=== PATIENT | female | born 1950 | race Caucasian/White ===

== ENCOUNTER 2016-11-25 08:35 | Day surgery (SDC) | payer BC ==
[2016-11-23 09:37] VITALS: BMI 33.5
[~2016-11-25 08:35] MED LIST: LACTATED RINGERS 1,000 ML IV SCH
[2016-11-25 08:48] VITALS: TEMP 97.3
[2016-11-25 08:54] LABS: Glucose,Whole Blood 146 mg/dL (75-99)
[2016-11-25] MEDS ORDERED: LIDOCAINE 1% 20 ML VIAL (10MG/ML) FOR IV START SQ ONE (08:55)
[2016-11-25] MEDS ORDERED: PROPOFOL 10 MG/ML 20 ML VIAL IV ONE (09:12)
[2016-11-25] MEDS ORDERED: LIDOCAINE 1% INJ 10MG/ML (20 ML MDV) ONE (09:12)
--- NOTE | 2016-11-25 09:17 | P.GSHP ---
History of Present Illness H&P Date: 11/25/16 Chief Complaint: Abdominal pain Patient here today for upper endoscopy. She has had complaints of upper abdominal pain. No relief with antiacids. She has had some relief with her modification of her diet. No melanotic stools or rectal bleeding. No hematemesis. Some intentional weight loss. Past Medical History Past Medical History: Diabetes Mellitus, GERD/Reflux, Hyperlipidemia, Hypertension, Thyroid Disorder Additional Past Medical History / Comment(s): RENAL ARTERY ANEURYSM X2 (1 REPAIRED), HIATAL HERNIA, FATTY LIVER, ALOPECIA. , STATES PAIN " RIGHT UPPER RIB CAGE" . History of Any Multi-Drug Resistant Organisms: None Reported Past Surgical History: Appendectomy, Section, Tonsillectomy Additional Past Surgical History / Comment(s): X2, REPAIR RENAL ARTERY ANEURYSM. Past Anesthesia/Blood Transfusion Reactions: No Reported Reaction Past Psychological History: No Psychological Hx Reported Smoking Status: Never smoker Past Alcohol Use History: Rare Past Drug Use History: None Reported - Past Family History Mother Family Medical History: No Reported History Medications and Allergies Home Medications Medication Instructions Recorded Confirmed Type Aspirin EC [Ecotrin Low Dose] 81 mg PO DAILY 11/23/16 11/25/16 History Atorvastatin [Lipitor] 40 mg PO MOWEFR 11/23/16 11/25/16 History Biotin 5 mg PO DAILY 11/23/16 11/25/16 History Cetirizine HCl [Zyrtec] 10 mg PO DAILY 11/23/16 11/25/16 History Docusate Sodium [Stool Softener] 100 mg PO DAILY 11/23/16 11/25/16 History Ergocalciferol [Vitamin D2] 50,000 unit PO DIRECTED 11/23/16 11/25/16 History Furosemide [Lasix] 20 mg PO DAILY 11/23/16 11/25/16 History Levothyroxine Sodium [Synthroid] 175 mcg PO DAILY 11/23/16 11/25/16 History Metoprolol Succinate (ER) [Toprol 50 mg PO DAILY 11/23/16 11/25/16 History Xl] Multivitamins, Thera [Multivitamin 1 tab PO DAILY 11/23/16 11/25/16 History (formulary)] Omeprazole [PriLOSEC] 20 mg PO DAILY 11/23/16 11/25/16 History metFORMIN HCL [Metformin HCl] 500 mg PO BID 11/23/16 11/25/16 History Allergies Allergy/AdvReac Type Severity Reaction Status Date / Time adhesive tape AdvReac Unknown IRRITATED Verified 11/25/16 08:44 SKIN Surgical - Exam Vital Signs Temp Pulse Resp BP Pulse Ox 97.3 F L 75 15 153/77 98 11/25/16 08:48 11/25/16 08:48 11/25/16 08:48 11/25/16 08:48 11/25/16 08:48 Physical exam: General: Well-developed, well-nourished HEENT: Normocephalic, sclerae nonicteric Abdomen: Nontender, nondistended Extremities: No edema Neuro: Alert and oriented Results - Labs Abnormal Lab Results - Last 24 Hours (Table) 11/25/16 Range/Units 08:52 POC Glucose (mg/dL) 146 H (75-99) mg/dL Assessment and Plan (1) Abdominal pain Narrative/Plan: Proceed with upper endoscopy at this time. Status: Acute
--- NOTE | 2016-11-25 09:26 | P.PCN ---
Date of Procedure: 11/25/16 Preoperative Diagnosis: Postoperative Diagnosis: Procedure(s) Performed: Preoperative Dx: Abdominal pain Postoperative Dx: Gastritis, gastric polyps, hiatal hernia, distal esophagitis Procedure: EGD with Bx Anesthesia: Sedation Endoscopist: Dr. Drake Specimens: Antrum, gastric polyp, distal esophagus Endoscopic Procedure: The patient was on the endoscopy table in the left decubitus position. The Olympus gastroscope was inserted into the oropharynx and passed under direct visualization to the region of the third portion of the duodenum. From that point the scope was slowly withdrawn inspecting all surfaces carefully. There were no neoplastic inflammatory or polypoid lesions throughout the duodenum. The pylorus was widely patent. The stomach was carefully inspected. There was gastritis present in a biopsy took place of the antrum. A few small polyps were also identified and a biopsy of one of these polyps took place. Retroflexion revealed a small sliding hiatal hernia. The GE junction was present about 1.5 cm above the diaphragmatic hiatus. At the GE junction itself there was mild acute inflammation. There was some subtle narrowing consistent with a very early Schatzki's ring formation the remainder of the esophagus appear normal. The patient was then taken to the recovery room in stable condition per anesthesia guidelines. Recommendations: Continue antiacid therapy. Await biopsy results. Implants: Indications for Procedure: Operative Findings: Description of Procedure:
[2016-11-25 09:32] VITALS: RESP 16
[2016-11-25 09:50] VITALS: BP 139/78; PULSE 68
== END 2016-11-25 10:17 | disposition home or self-care (01) ==
LOC: ORWHC2ENDO 08:35
PROVIDERS: ATTEND Surgery
DX: K29.50 Unspecified chronic gastritis without bleeding (principal); K31.7 Polyp of stomach and duodenum; K44.9 Diaphragmatic hernia without obstruction or gangrene; K21.0 Gastro-esophageal reflux disease with esophagitis; E11.9 Type 2 diabetes mellitus without complications; E78.5 Hyperlipidemia, unspecified; I10 Essential (primary) hypertension; E07.9 Disorder of thyroid, unspecified; Z79.82 Long term (current) use of aspirin; Z79.899 Other long term (current) drug therapy; Z79.84 Long term (current) use of oral hypoglycemic drugs
CPT/HCPCS: 88305; 88342; 43239; J2001; J2704

== ENCOUNTER 2019-06-02 15:04 | Emergency (ER) | payer MEDICARE, BC ==
[2019-06-02 15:08] VITALS: RESP 18
[2019-06-02] MEDS ORDERED: ONDANSETRON 4 MG/2 ML VIAL IVP STA (15:23)
[2019-06-02 15:42] LABS: Basophils # (A) 0.1 k/uL (0-0.2); Basophils % (A) 1 %; Eosinophils # (A) 0.2 k/uL (0-0.7); Eosinophils % (A) 2 %; HCT 38.2 % (34.0-46.0); HGB 13.1 gm/dL (11.4-16.0); Lymphocytes # (A) 3.8 k/uL (1.0-4.8); Lymphocytes % (A) 45 %; MCH 31.7 pg (25.0-35.0); MCHC 34.2 g/dL (31.0-37.0); MCV 92.6 fL (80.0-100.0); Mean Platelet Volume 6.3; Monocytes # (A) 0.6 k/uL (0-1.0); Monocytes % (A) 7 %; Neutrophils # (A) 3.6 k/uL (1.3-7.7); Neutrophils % (A) 43 %; Platelet Count 346 k/uL (150-450); RBC 4.12 m/uL (3.80-5.40); RDW 12.8 % (11.5-15.5); WBC 8.3 k/uL (3.8-10.6)
--- NOTE | 2019-06-02 15:51 | ED ---
Abdominal Pain HPI - General Source: patient Mode of arrival: ambulatory Limitations: no limitations <Girish Paez - Last Filed: 06/03/19 01:32> <Chito Duncan - Last Filed: 06/04/19 17:06> - General Chief Complaint: Abdominal Pain Stated Complaint: Abd pain Time Seen by Provider: 06/02/19 15:09 - History of Present Illness Initial Comments: Patient is a 68-year-old female with history of renal artery aneurysm was presenting to emergency Department with a chief complaint of abdominal pain. Patient reports the pain started about one week ago and is gradually increasing severity. She states the pain is located right upper quadrant and is dull in nature. Patient states the pain is not related to oral intake. Patient does report intermittent mild nausea but no vomiting or diarrhea. Patient denies any night sweats fevers or chills. Patient denies any urinary or bowel symptoms. She has no previous history of gallbladder disease. Denies any chest pain shortness of breath and back pain. She states recently she has been playing with her grandchildren more often and picking them up because there are for the holidays. denies shortness of breath or chest pain. (Girish Paez) - Related Data Home Medications Medication Instructions Recorded Confirmed Aspirin EC [Ecotrin Low Dose] 81 mg PO DAILY 11/23/16 11/25/16 Atorvastatin [Lipitor] 40 mg PO MOWEFR 11/23/16 11/25/16 Biotin 5 mg PO DAILY 11/23/16 11/25/16 Cetirizine HCl [Zyrtec] 10 mg PO DAILY 11/23/16 11/25/16 Docusate Sodium [Stool Softener] 100 mg PO DAILY 11/23/16 11/25/16 Ergocalciferol [Vitamin D2] 50,000 unit PO DIRECTED 11/23/16 11/25/16 Furosemide [Lasix] 20 mg PO DAILY 11/23/16 11/25/16 Levothyroxine Sodium [Synthroid] 175 mcg PO DAILY 11/23/16 11/25/16 Metoprolol Succinate (ER) [Toprol 50 mg PO DAILY 11/23/16 11/25/16 Xl] Multivitamins, Thera [Multivitamin 1 tab PO DAILY 11/23/16 11/25/16 (formulary)] Omeprazole [PriLOSEC] 20 mg PO DAILY 11/23/16 11/25/16 metFORMIN HCL [Metformin HCl] 500 mg PO BID 11/23/16 11/25/16 Allergies Allergy/AdvReac Type Severity Reaction Status Date / Time adhesive tape AdvReac Unknown IRRITATED Verified 11/25/16 08:44 SKIN Review of Systems ROS Other: All systems not noted in ROS Statement are negative. <Girish Paez - Last Filed: 06/03/19 01:32> ROS Other: All systems not noted in ROS Statement are negative. <Chito Duncan - Last Filed: 06/04/19 17:06> ROS Statement: Those systems with pertinent positive or pertinent negative responses have been documented in the HPI. Past Medical History Past Medical History: Diabetes Mellitus, GERD/Reflux, Hyperlipidemia, Hypertension, Thyroid Disorder Additional Past Medical History / Comment(s): RENAL ARTERY ANEURYSM X2 (1 REPAIRED), HIATAL HERNIA, FATTY LIVER, ALOPECIA. , STATES PAIN " RIGHT UPPER RIB CAGE" . History of Any Multi-Drug Resistant Organisms: None Reported Past Surgical History: Appendectomy, Section, Tonsillectomy Additional Past Surgical History / Comment(s): X2, REPAIR RENAL ARTERY ANEURYSM. Past Anesthesia/Blood Transfusion Reactions: No Reported Reaction Past Psychological History: No Psychological Hx Reported Smoking Status: Never smoker Past Alcohol Use History: Rare Past Drug Use History: None Reported - Past Family History Mother Family Medical History: No Reported History <Girish Paez - Last Filed: 06/03/19 01:32> General Exam Limitations: no limitations General appearance: alert, in no apparent distress Head exam: Present: atraumatic, normocephalic, normal inspection Eye exam: Present: normal appearance Pupils: Present: normal accommodation ENT exam: Present: normal exam, normal oropharynx, mucous membranes moist, TM's normal bilaterally, normal external ear exam Neck exam: Present: normal inspection, full ROM Respiratory exam: Present: normal lung sounds bilaterally, chest wall tenderness (focal tenderness along the mid axillary line on the right side) Cardiovascular Exam: Present: regular rate, normal rhythm, normal heart sounds GI/Abdominal exam: Present: soft, tenderness (Right upper quadrant. Positive Bundy), normal bowel sounds. Absent: distended, guarding, rebound, rigid, organomegaly, mass, bruit, pulsatile mass, hernia Extremities exam: Present: normal inspection, full ROM Back exam: Present: normal inspection, full ROM Neurological exam: Present: alert, oriented X3 Psychiatric exam: Present: normal affect, normal mood Skin exam: Present: warm, dry, normal color <Girish Paez - Last Filed: 06/03/19 01:32> Course <Chito Duncan - Last Filed: 06/04/19 17:06> Vital Signs 06/02/19 06/02/19 15:06 18:26 Temperature 97.7 F 96.9 F L Pulse Rate 86 91 Respiratory 18 18 Rate Blood Pressure 155/76 141/83 O2 Sat by Pulse 100 99 Oximetry - Reevaluation(s) Reevaluation #1: 06/04/19 17:05 PA supervision: I proceeded [id number] evaluation the patient at the time of treatment. Patient did present with complaints of pain as stated in the initial H&P. Her clinical exam was otherwise unremarkable on my exam. She did state however that she had a history of a renal aneurysm that presented very similarly to how she presents today. Patient was evaluated in the appropriate fashion and was ultimately discharged with outpatient follow-up. No evidence of aneurysm. I do agree with assessment and plan. (Chito Duncan) Medical Decision Making - Lab Data Result diagrams: 06/02/19 15:34 06/02/19 15:34 <Girish Paez - Last Filed: 06/03/19 01:32> - Lab Data Result diagrams: 06/02/19 15:34 06/02/19 15:34 <Chito Duncan - Last Filed: 06/04/19 17:06> - Medical Decision Making Patient is 68-year-old female presenting to emergency Department with chief complaint of right upper quadrant abdominal pain. On exam patient has a positive Bundy sign and some tenderness along the mid axillary line on the right side. There appears to be focal tenderness there as well. The right upper quadrant and lateral flank pain appears to be exacerbated with palpation in left and right rotation. Patient does have a history of a right renal artery aneurysm. No CVA tenderness. CBC, CMP and UA unremarkable. Ultrasound of the right upper quadrant is unremarkable. CT of abdomen and pelvis is also unremarkable. At this point I suspect the patient's pain to be musculoskeletal in nature as she states she has been playing with her grandchildren and picking them up recently as of the holidays. Patient declined any analgesia because the pain was never that severe. Patient advised to follow with primary care. Strict return parameters were thoroughly discussed with patient was understanding and agreeable. Case discussed with physician. (Girish Paez) - Lab Data Lab Results 06/02/19 06/02/19 06/02/19 Range/Units 15:34 15:34 16:00 WBC 8.3 (3.8-10.6) k/uL RBC 4.12 (3.80-5.40) m/uL Hgb 13.1 (11.4-16.0) gm/dL Hct 38.2 (34.0-46.0) % MCV 92.6 (80.0-100.0) fL MCH 31.7 (25.0-35.0) pg MCHC 34.2 (31.0-37.0) g/dL RDW 12.8 (11.5-15.5) % Plt Count 346 (150-450) k/uL Neutrophils % 43 % Lymphocytes % 45 % Monocytes % 7 % Eosinophils % 2 % Basophils % 1 % Neutrophils # 3.6 (1.3-7.7) k/uL Lymphocytes # 3.8 (1.0-4.8) k/uL Monocytes # 0.6 (0-1.0) k/uL Eosinophils # 0.2 (0-0.7) k/uL Basophils # 0.1 (0-0.2) k/uL Sodium 137 (137-145) mmol/L Potassium 4.3 (3.5-5.1) mmol/L Chloride 100 (98-107) mmol/L Carbon Dioxide 28 (22-30) mmol/L Anion Gap 9 mmol/L BUN 14 (7-17) mg/dL Creatinine 0.70 (0.52-1.04) mg/dL Est GFR (CKD-EPI)AfAm >90 (>60 ml/min/1.73 sqM) Est GFR (CKD-EPI)NonAf >90 (>60 ml/min/1.73 sqM) Glucose 206 H (74-99) mg/dL Calcium 9.6 (8.4-10.2) mg/dL Total Bilirubin 0.4 (0.2-1.3) mg/dL AST 25 (14-36) U/L ALT 25 (9-52) U/L Alkaline Phosphatase 77 (38-126) U/L Total Protein 7.3 (6.3-8.2) g/dL Albumin 4.4 (3.5-5.0) g/dL Amylase 54 (30-110) U/L Lipase 142 (23-300) U/L Urine Color Yellow Urine Appearance Clear (Clear) Urine pH 5.5 (5.0-8.0) Ur Specific [place] 1.023 (1.001-1.035) Urine Protein Negative (Negative) Urine Glucose (UA) Negative (Negative) Urine Ketones Negative (Negative) Urine Blood Negative (Negative) Urine Nitrite Negative (Negative) Urine Bilirubin Negative (Negative) Urine Urobilinogen <2.0 (<2.0) mg/dL Ur Leukocyte Esterase Small H (Negative) Urine RBC 1 (0-5) /hpf Urine WBC 5 (0-5) /hpf Ur Squamous Epith Cells 2 (0-4) /hpf Disposition Is patient prescribed a controlled substance at d/c from ED?: No Time of Disposition: 18:21 <Girish Paez - Last Filed: 06/03/19 01:32> <Chito Duncan - Last Filed: 06/04/19 17:06> Clinical Impression: Right upper quadrant abdominal pain Disposition: HOME SELF-CARE Condition: Stable Instructions (If sedation given, give patient instructions): Abdominal Pain (ED) Additional Instructions: Please follow up with primary care. Please return to emergency department if symptoms worsen. Referrals: Kaye Drake MD [Primary Care Provider] - 1-2 days
[2019-06-02 15:56] LABS: ALT 25 U/L (9-52); AST 25 U/L (14-36); African American GFR (CKD) >90 (>60 ml/min/1.73 sqM); Albumin 4.4 g/dL (3.5-5.0); Alkaline Phosphatase 77 U/L (38-126); Amylase 54 U/L (30-110); Anion Gap 9 mmol/L; Blood Urea Nitrogen 14 mg/dL (7-17); Calcium 9.6 mg/dL (8.4-10.2); Carbon Dioxide 28 mmol/L (22-30); Chloride 100 mmol/L (98-107); Glucose 206 mg/dL (74-99); Non-African American GFR(CKD) >90 (>60 ml/min/1.73 sqM); Potassium 4.3 mmol/L (3.5-5.1); Sodium 137 mmol/L (137-145); Total Bilirubin 0.4 mg/dL (0.2-1.3); Total Protein 7.3 g/dL (6.3-8.2)
[2019-06-02 16:22] LABS: Appearance,Urine Clear (Clear); Bilirubin,Urine Negative (Negative); Blood,Urine Negative (Negative); Color,Urine Yellow; Glucose,Urine (UA) Negative (Negative); Ketones,Urine Negative (Negative); Leukocyte Esterase,Urine Small (Negative); Nitrite,Urine Negative (Negative); PH, Urine 5.5 (5.0-8.0); Protein,Urine Negative (Negative); RBC,Urine 1 /hpf (0-5); Specific Gravity,Urine 1.023 (1.001-1.035); Squamous Epithelial Cell,Urine 2 /hpf (0-4); Urobilinogen,Urine <2.0 mg/dL (<2.0); WBC,Urine 5 /hpf (0-5)
--- NOTE | 2019-06-02 17:13 | US ---
EXAMINATION TYPE: US abdomen limited DATE OF EXAM: 06/02/2019 COMPARISON: CLINICAL HISTORY: ruq. RUQ pain EXAM MEASUREMENTS: Liver Length: 15.2 cm Gallbladder Wall: 0.1 cm CBD: 0.5 cm Right Kidney: 9.9 x 4.9 x 4.8 cm Pancreas: Obscured by bowel gas Liver: wnl Gallbladder: wnl Evidence for sonographic Bundy's sign: neg CBD: wnl Right Kidney: wnl IMPRESSION: Negative exam. No gallstones or dilated ducts.
--- NOTE | 2019-06-02 18:18 | CT ---
EXAMINATION TYPE: CT abdomen pelvis w con DATE OF EXAM: 06/02/2019 COMPARISON: None HISTORY: RUQ pain. Hx appy, CT DLP: 1232.2 mGycm Automated exposure control for dose reduction was used. TECHNIQUE: Helical acquisition of images was performed from the lung bases through the pelvis. CONTRAST: Performed without Oral Contrast and with IV Contrast, patient injected with 100 mL of Isovue 300. FINDINGS: Lung bases are clear. There is no pleural effusion. Heart size is normal. There is no pericardial eff usion. Stomach is intact. Liver spleen pancreas gallbladder appear normal. Bile ducts are not dilated. There is no adrenal mass. Kidneys show satisfactory contrast opacification. There is no hydronephrosi s. Ureters are not dilated. There is no retroperitoneal adenopathy. Bladder distends smoothly. There is no inguinal hernia. There is no free fluid in the pelvis. There is no mesenteric edema. There is no ascites or free air. There is no sign of a bowel obstruction. Appendix is not seen. There is no sign of thickened appendix . Lumbar vertebra have normal spacing and alignment. Posterior elements are intact. There is no sukhjinder olga fracture. The bony pelvis appears intact. Uterus is not seen. IMPRESSION: NEGATIVE CT SCAN ABDOMEN AND PELVIS. I DO NOT SEE A CAUSE FOR RIGHT LOWER QUADRANT PAIN.
[2019-06-02 18:34] VITALS: BP 141/83; PULSE 91; TEMP 96.9
== END 2019-06-02 18:26 | disposition home or self-care (01) ==
LOC: EC 15:04
DX: R10.11 Right upper quadrant pain (principal); E11.9 Type 2 diabetes mellitus without complications; K21.9 Gastro-esophageal reflux disease without esophagitis; E78.5 Hyperlipidemia, unspecified; I10 Essential (primary) hypertension; E07.9 Disorder of thyroid, unspecified; Z79.82 Long term (current) use of aspirin; Z79.890 Hormone replacement therapy; Z79.84 Long term (current) use of oral hypoglycemic drugs; Z79.899 Other long term (current) drug therapy; Z91.048 Other nonmedicinal substance allergy status; Z87.19 Personal history of other diseases of the digestive system; Z90.89 Acquired absence of other organs; Z86.79 Personal history of other diseases of the circulatory system; Z98.890 Other specified postprocedural states
CPT/HCPCS: 36415; 80053; 82150; 83690; 85025; 81001; 76705; 74177; 96374; 99284; J2405; Q9967

== ENCOUNTER → 2019-08-05 | Outpatient (CLI) | payer MEDICARE, BC ==
--- NOTE | 2019-08-05 10:47 | BD ---
EXAMINATION TYPE: Axial Bone Density DATE OF EXAM: 08/05/2019 COMPARISON: NONE CLINICAL HISTORY: Z 78.0 Height: 63 Weight: 187.4 FRAX RISK QUESTIONS: Alcohol (3 or more units per day): no Family History (Parent hip fracture): no Glucocorticoids (More than 3mos): no (Ex: prednisone, prednisolone, methylprednisolone, dexamethasone, and hydrocortisone). History of Fracture in Adulthood: no Secondary Osteoporosis: 1. Type 1 Diabetes: no 2. Hyperthyroidism: no 3. Menopause before 45: no 4. Malnutrition: no 5. Chronic liver disease: no Rheumatoid Arthritis: no Current Tobacco Use: no RISK FACTORS HISTORY OF: Family History of Osteoporosis: no Active: yes Diet low in dairy products/other sources of calcium: yes Postmenopausal woman: age 52 Lost more than 2 inches in height since high school: no MEDICATIONS: metformin, Metoprolol, atorvastatin, repaglinide, vitamins Thyroid Medications: thyroid How Lon years Additional History: EXAM MEASUREMENTS: Bone mineral densitometry was performed using the [employer] System. Bone mineral density as measured about the Lumbar spine is: ----- L1-L4(G/cm2): 1.169 T Score Values are as follows: ----- L2: -0.8 ----- L3: -0.7 ----- L4: -0.7 ----- L1-L4: -0.1 Bone mineral density : baseline Bone mineral density about the R hip (g/cm2): 0.982 Bone mineral density about the L hip (g/cm2): 0.906 T Score values are as follows: -----R Neck: -0.4 -----L Neck: -0.9 -----R Total: -0.3 -----L Total: -0.2 Bone mineral density : baseline IMPRESSION: Normal (Values between +1 and -1 indicate normal bone mass). Consider repeating this study in 5 year s or sooner if there is some new clinical indication. NOTE: T-SCORE=SD OF THE YOUNG ADULT MEAN.
--- NOTE | 2019-08-06 10:23 | MM ---
Reason for exam: screening (asymptomatic). Last mammogram was performed 3 years and 11 months ago. History: Patient is postmenopausal. Family history of breast cancer in aunt. Took hormonal contraceptives for 20 years. Took estrogen for 2 years beginning at age 53. Physical Findings: A clinical breast exam by your physician is recommended on an annual basis and results should be correlated with mammographic findings. MG 3D Screening Mammo W/Cad Bilateral CC and MLO view(s) were taken. Prior study comparison: August 21, 2015, bilateral MG screening mammo w CAD. December 10, 2013, bilateral MG screening mammo w CAD. The breast tissue is heterogeneously dense. This may lower the sensitivity of mammography. Finding: There are typically benign dystrophic, round calcifications in both breasts. Developing asymmetry 13mm 7-8cm from the nipple middle depth upper aspect on MLO 17/. ASSESSMENT: Incomplete: need additional imaging evaluation, BI-RAD 0 RECOMMENDATION: Special view mammogram of the right breast. If lesion persists on supplemental views, image directed ultrasound is recommended. [facility] will attempt to contact patient to return for supplemental views and ultrasound if indicated.
== END | disposition home or self-care (01) ==
LOC: RADMAMWWP 08:10
PROVIDERS: ATTEND Family Medicine
DX: Z12.31 Encounter for screening mammogram for malignant neoplasm of breast (principal); Z78.0 Asymptomatic menopausal state
CPT/HCPCS: 77063; 77067; 77080

== ENCOUNTER → 2019-08-12 | Outpatient (CLI) | payer MEDICARE, BC ==
--- NOTE | 2019-08-13 08:57 | MM ---
Reason for exam: additional evaluation requested from abnormal screening. Last mammogram was performed less than 1 month ago. History: Patient is postmenopausal. Family history of breast cancer in aunt. Took hormonal contraceptives for 20 years. Took estrogen for 2 years beginning at age 53. Physical Findings: Nurse did not find any significant physical abnormalities on exam. MG 3D Work Up W/Cad RT Spot compression CC, spot compression MLO, and ML view(s) were taken of the right breast. Prior study comparison: August 05, 2019, bilateral MG 3d screening mammo w/cad. August 21, 2015, bilateral MG screening mammo w CAD. The breast tissue is heterogeneously dense. This may lower the sensitivity of mammography. There is a 7 x 12mm superior asymmetry 9cm from nipple without CC correlate. These results were verbally communicated with the patient and result sheet given to the patient on 08/12/19. ASSESSMENT: Incomplete: need additional imaging evaluation, BI-RAD 0 RECOMMENDATION: Ultrasound of the right breast. (superior breast)
--- NOTE | 2019-08-13 08:58 | USB ---
Reason for exam: additional evaluation requested from abnormal screening. History: Patient is postmenopausal. Family history of breast cancer in aunt. Took hormonal contraceptives for 20 years. Took estrogen for 2 years beginning at age 53. US Breast Workup Limited RT Right limited breast ultrasound including focal area of concern, retroareolar and axilla demonstrates no cystic or solid lesion seen. Focal dense tissue at 2 o'clock B/C. No suspicious sonographic finding. These results were verbally communicated with the patient and result sheet given to the patient on 08/12/19. ASSESSMENT: Probably benign, BI-RAD 3 RECOMMENDATION: Follow-up diagnostic mammogram of the right breast in 6 months.
== END | disposition home or self-care (01) ==
LOC: RADMAMWWP 14:56
PROVIDERS: ATTEND Family Medicine
DX: R92.8 Other abnormal and inconclusive findings on diagnostic imaging of breast (principal)
CPT/HCPCS: 77065; 76642; G0279; 77061

== ENCOUNTER → 2020-06-17 | Outpatient (CLI) | payer MEDICARE, BC ==
--- NOTE | 2020-06-17 11:07 | MM ---
Reason for exam: follow-up at short interval from prior study. Last mammogram was performed 10 months ago. History: Patient is postmenopausal. Family history of breast cancer in aunt. Took hormonal contraceptives for 20 years. Took estrogen for 2 years beginning at age 53. Physical Findings: Nurse did not find any significant physical abnormalities on exam. MG Diagnostic Mammo RT w CAD CC and MLO view(s) were taken of the right breast. Prior study comparison: August 12, 2019, right breast MG 3d work up w/cad RT. August 05, 2019, bilateral MG 3d screening mammo w/cad. The breast tissue is heterogeneously dense. This may lower the sensitivity of mammography. Focal asymmetry upper outer right breast is improved. Continued follow up recomended. These results were verbally communicated with the patient and result sheet given to the patient on 06/17/20. ASSESSMENT: Probably benign, BI-RAD 3 RECOMMENDATION: Follow-up diagnostic mammogram of both breasts in 2 months. Back on schedule for August 2020.
== END | disposition home or self-care (01) ==
LOC: RADMAMWWP 10:09
PROVIDERS: ATTEND Family Medicine
DX: R92.8 Other abnormal and inconclusive findings on diagnostic imaging of breast (principal)
CPT/HCPCS: 77065

== ENCOUNTER → 2022-04-27 | Outpatient (CLI) | payer MEDICARE ==
--- NOTE | 2022-04-27 10:15 | MM ---
Reason for Exam: Clinical finding. Last mammogram was performed 2 year(s) and 8 month(s) ago. Patient History: Menarche at age 12. First Full-Term at age 29. Hysterectomy at age 51. Postmenopausal. Estrogen, starting at age 53 for 2 years. Patient used Hormonal Contraceptives for 20 years. Maternal aunt had breast cancer. Risk Values: Dee 5 year model risk: 2.1%. NCI Lifetime model risk: 6.4%. Tissue Density: The breast tissue is heterogeneously dense. This may lower the sensitivity of mammography. Findings: Analyzed By CAD. Chronic nodularity is present greater on the right. Benign-appearing calcifications are present bilaterally. No significant interval change. No suspicious groups of microcalcifications, spiculated or lobular masses, architectural distortion or other secondary signs of malignancy are mammographically apparent. Overall Assessment: Benign, BI-RAD 2 Management: Screening Mammogram of both breasts in 1 year. A negative mammogram report should not preclude additional follow up of suspicious palpable abnormalities. Patient should continue monthly self breast exam. A clinical breast exam by your physician is recommended on an annual basis and results should be correlated with mammographic findings. Electronically signed and approved by: Mac Martin D.O. Radiologis
== END | disposition home or self-care (01) ==
LOC: RADMAMWWP 09:39
PROVIDERS: ATTEND Family Medicine
DX: R92.8 Other abnormal and inconclusive findings on diagnostic imaging of breast (principal); Z78.0 Asymptomatic menopausal state; Z80.3 Family history of malignant neoplasm of breast
CPT/HCPCS: 77066; G0279; 77062

== ENCOUNTER → 2022-10-27 | Outpatient (CLI) | payer MEDICARE ==
--- NOTE | 2022-10-27 14:09 | NM ---
EXAMINATION TYPE: NM myocardial SPECT single DATE OF EXAM: 10/27/2022 COMPARISON: NONE CLINICAL INDICATION: Female, 72 years old with history of R07.9 R06.02; Following administration of 9.3 mCi Tc 99m Sestamibi, rest images were obtained. The technologist not es that the patient's blood pressure was too high to proceed with the stress portion of the exam. FINDINGS: Estimated LVEF is 68%. No perfusion defects are identified on these rest images. Gated analysis shows overall normal wall motion. IMPRESSION: Only the rest portion could be performed. Patient's blood pressure was too high to proceed with the s tress portion of the exam. No defects on rest images to suggest any areas of old infarcts. Estimated LVEF of 68%.
== END | disposition home or self-care (01) ==
LOC: RADNMMAIN 08:02
PROVIDERS: ATTEND Family Medicine
DX: R07.9 Chest pain, unspecified (principal); R06.02 Shortness of breath
CPT/HCPCS: 78451; A9500

== ENCOUNTER → 2022-10-31 | Outpatient (CLI) | payer MEDICARE ==
[~2022-10-31] MED LIST changes: -LACTATED RINGERS 1,000 ML IV SCH; +REGADENOSON 0.4 MG/5 ML SYRINGE IV ONE
--- NOTE | 2022-10-31 11:53 | CA ---
Lexiscan Nuclear Stress Test Report Name: Toyin Rendon Exam Date: 10/31/2022 10:38 Exam Location: [facility] Ht (in): 62 Wt (lb): 175 BSA: 1.81 Ordering Phys: Kaye Drake MD Referring Phys: PETER,, Technologist: Stephon Puri Age: 72 Gender: F : 1950 Procedure CPT: Indications: R07.9 R06.02 ICD-10 Codes: Patient History: Medications: TOPROLOL XL, TELMISARTAN Meds past 24 hrs: Pretest Chest Pain: STRESS TEST Lexiscan Protocol Exercise Duration (min:sec): 01:[address] Depressions (mm): Angina Score: Aleman Score: Resting HR (bpm): 73 Peak HR (bpm): 109 Resting BP (mmHg): 167 / 76 Peak BP (mmHg): 189 / 96 MPHR: 150 Target HR: 128 % MPHR: 73 METS: 1.0 Total Dose: Peak Dose: Atropine: Double Product: BP Response: Stress Termination: Completion of Infusion Stress Symptoms: FLUSHED Stress Summary: ECG ANALYSIS Resting ECG: Sinus rhythm. Normal conduction. Atrial premature contraction. Nonspecific ST-T abnormality. Stress ECG: No ECG changes from baseline with Lexiscan infusion. CONCLUSIONS No ECG evidence of ischemia with Lexiscan infusion. Nuclear test results to follow. Dr. Camilla Mirza MD (Electronically Signed) Final Date: 31 Oct 2022 11:52
--- NOTE | 2022-10-31 12:20 | NM ---
EXAMINATION TYPE: NM stress lexiscan cardiolite DATE OF EXAM: 10/31/2022 COMPARISON: Prior study 2012 CLINICAL INDICATION: Female, 72 years old with history of R07.9 R06.02; history of hypertension and l eft arm numbness. History of hypercholesterolemia. TECHNIQUE: After the intravenous administration of 10.2 mCi Tc 99m Sestamibi - Cardiolite resting SP ECT images acquired 45 minutes post injection. The patient received 0.4mg Lexiscan, 24.3 mCi Tc 99m Sestamibi - Stress images obtained [address] injection FINDINGS: Review of stress and rest SPECT images demonstrates no distinct perfusion abnormality. Gated analysi s shows normal wall motion with an estimated left ventricular ejection fraction of 69 %. IMPRESSION: No scintigraphic evidence for reversible ischemia.
== END | disposition home or self-care (01) ==
LOC: RADNMMAIN 08:00
PROVIDERS: ATTEND Family Medicine
DX: R07.9 Chest pain, unspecified (principal); R06.02 Shortness of breath; I10 Essential (primary) hypertension; E78.00 Pure hypercholesterolemia, unspecified
CPT/HCPCS: 93017; 78452; A9500

== ENCOUNTER → 2023-04-28 | Outpatient (CLI) | payer MEDICARE ==
--- NOTE | 2023-04-28 15:22 | MM ---
Reason for Exam: Screening (asymptomatic). Last screening mammogram was performed 12 month(s) ago. Patient History: Menarche at age 12. First Full-Term at age 29. Hysterectomy at age 51. Postmenopausal. Estrogen, starting at age 53 for 2 years. Patient used Hormonal Contraceptives for 20 years. Maternal aunt had breast cancer. Risk Values: Dee 5 year model risk: 2.1%. NCI Lifetime model risk: 6.1%. Prior Study Comparison: 08/12/2019 Right Diagnostic Mammogram, [facility]. 06/17/2020 Right Diagnostic Mammogram, [facility]. 04/27/2022 Bilateral MG 3D diag mammo w/cad [facility], [facility]. Tissue Density: The breast tissue is heterogeneously dense. This may lower the sensitivity of mammography. Findings: Analyzed By CAD. There is no suspicious group of microcalcifications or new suspicious mass in either breast. Benign calcifications within both breasts. Chronic nodularity within the right breast. Overall Assessment: Benign, BI-RAD 2 Management: Screening Mammogram of both breasts in 1 year. A clinical breast exam by your physician is recommended on an annual basis and results should be correlated with mammographic findings. Note on Dee scores and lifetime risk: 1. A Dee score greater than 3% is considered moderate risk. If this is the case, consider specialist referral to assess eligibility for a risk reducing agent. If overall lifetime risk for the development of breast cancer is 20% or higher, the patient may qualify for future screening with alternating mammogram and breast MRI. Electronically signed and approved by: Almas Sahu D.O.
== END | disposition home or self-care (01) ==
LOC: RADMAMWWP 14:59
PROVIDERS: ATTEND Family Medicine
DX: Z12.31 Encounter for screening mammogram for malignant neoplasm of breast (principal); Z78.0 Asymptomatic menopausal state; Z80.3 Family history of malignant neoplasm of breast
CPT/HCPCS: 77063; 77067

== ENCOUNTER 2023-05-30 09:36 | Day surgery (SDC) | payer MEDICARE ==
[2023-05-24 10:21] VITALS: BMI 34.0
[~2023-05-30 09:36] MED LIST changes: +LACTATED RINGERS 1,000 ML IV SCH; -REGADENOSON 0.4 MG/5 ML SYRINGE IV ONE
[2023-05-30 10:29] LABS: Glucose,Whole Blood 130 mg/dL (70-110)
[2023-05-30] MEDS ORDERED: PROPOFOL 10 MG/ML 20 ML VIAL IV ONE (10:29)
[2023-05-30 10:32] VITALS: RESP 16; TEMP 97.4
--- NOTE | 2023-05-30 10:33 | P.GSHP ---
History of Present Illness H&P Date: 05/30/23 Chief Complaint: Colon cancer screening 72-year-old female here for colonoscopy. Last colonoscopy 8-10 years ago. No history of polyps. Family history of colon cancer in a grandparent. No bowel complaints. Past Medical History Past Medical History: Diabetes Mellitus, GERD/Reflux, Hyperlipidemia, Hypertension, Liver Disease, Thyroid Disorder Additional Past Medical History / Comment(s): RENAL ARTERY ANEURYSM X2 (1 REPAIRED), HIATAL HERNIA, FATTY LIVER, ALOPECIA. History of Any Multi-Drug Resistant Organisms: None Reported Past Surgical History: Appendectomy, Section, Tonsillectomy Additional Past Surgical History / Comment(s): X2, REPAIR RENAL ARTERY ANEURYSM. Past Anesthesia/Blood Transfusion Reactions: No Reported Reaction Past Psychological History: No Psychological Hx Reported Smoking Status: Never smoker Past Alcohol Use History: Rare Past Drug Use History: None Reported - Past Family History Mother Family Medical History: No Reported History Medications and Allergies Home Medications Medication Instructions Recorded Confirmed Type Aspirin EC [Ecotrin Low Dose] 81 mg PO DAILY 11/23/16 05/30/23 History Biotin 5 mg PO DAILY 11/23/16 05/30/23 History Cetirizine HCl [Zyrtec] 10 mg PO DAILY 11/23/16 05/30/23 History Docusate Sodium [Stool Softener] 100 mg PO DAILY 11/23/16 05/30/23 History Furosemide [Lasix] 20 mg PO DAILY 11/23/16 05/30/23 History Metoprolol Succinate (ER) [Toprol 50 mg PO QAM 11/23/16 05/30/23 History Xl] Multivitamins, Thera [Multivitamin 1 tab PO DAILY 11/23/16 05/30/23 History (formulary)] Omeprazole [PriLOSEC] 20 mg PO QAM 11/23/16 05/30/23 History metFORMIN HCL [Metformin HCl] 500 mg PO TID 11/23/16 05/30/23 History Cholecalciferol [Vitamin D3 (125 1,250 mcg PO MOTH 05/24/23 05/30/23 History Mcg = 5000 Iu)] Levothyroxine Sodium [Synthroid] 112 mcg PO QAM 05/24/23 05/30/23 History Semaglutide [Ozempic] 2 mg SQ WE 05/24/23 05/30/23 History Allergies Allergy/AdvReac Type Severity Reaction Status Date / Time adhesive tape AdvReac Unknown IRRITATED Verified 05/30/23 10:17 SKIN Surgical - Exam Vital Signs Temp Pulse Resp BP Pulse Ox 97.4 F L 80 16 176/81 98 05/30/23 10:16 05/30/23 10:16 05/30/23 10:16 05/30/23 10:16 05/30/23 10:16 Physical exam: General: Well-developed, well-nourished HEENT: Normocephalic, sclerae nonicteric Abdomen: Nontender, nondistended Extremities: No edema Neuro: Alert and oriented Results - Labs Abnormal Lab Results - Last 24 Hours (Table) 05/30/23 Range/Units 10:23 POC Glucose (mg/dL) 130 H (70-110) mg/dL Assessment and Plan (1) Colon cancer screening Narrative/Plan: Will proceed with colonoscopy at this time Current Visit: Yes Status: Acute Code(s): Z12.11 - ENCOUNTER FOR SCREENING FOR MALIGNANT NEOPLASM OF COLON SNOMED Code(s): 886255165
--- NOTE | 2023-05-30 10:48 | P.PCN ---
Date of Procedure: 05/30/23 Procedure(s) Performed: PREOPERATIVE DIAGNOSIS: Colon cancer screening POSTOPERATIVE DIAGNOSIS: Hepatic flexure polyp PROCEDURE: Colonoscopy with snare polypectomy ANESTHESIA: MAC SURGEON: Beltran Drake M.D. SPECIMENS: Polyp ENDOSCOPIC PROCEDURE: The patient was placed on the endoscopy table in the left decubitus position. The Olympus colonoscope was inserted into the anus and passed under direct visualization to the base of the cecum. The appendiceal orifice was visualized. From that point the scope was slowly withdrawn inspecting all surfaces carefully. There were no neoplastic inflammatory or polypoid lesions throughout the cecum or ascending colon. In the hepatic flexure/proximal transverse colon there was a 1 cm sessile polyp removed in 2 pieces using the snare with cautery technique. The remainder of the transverse descending sigmoid and rectum appeared normal. There was no visible diverticulosis. Digital rectal examination was normal. The patient was taken to the recovery room in stable condition per anesthesia guidelines. RECOMMENDATIONS: Await biopsy results. Repeat colonoscopy 3 years.
[2023-05-30 11:34] VITALS: BP 145/83; PULSE 77
== END 2023-05-30 11:30 | disposition home or self-care (01) ==
LOC: ORWHC2ENDO 09:36
PROVIDERS: ATTEND Surgery
DX: Z12.11 Encounter for screening for malignant neoplasm of colon (principal); D12.3 Benign neoplasm of transverse colon; E11.9 Type 2 diabetes mellitus without complications; K21.9 Gastro-esophageal reflux disease without esophagitis; E78.5 Hyperlipidemia, unspecified; I10 Essential (primary) hypertension; K74.60 Unspecified cirrhosis of liver; E07.9 Disorder of thyroid, unspecified; K76.0 Fatty (change of) liver, not elsewhere classified; K44.9 Diaphragmatic hernia without obstruction or gangrene; F41.9 Anxiety disorder, unspecified; Z80.0 Family history of malignant neoplasm of digestive organs; Z87.442 Personal history of urinary calculi; Z90.49 Acquired absence of other specified parts of digestive tract; Z79.82 Long term (current) use of aspirin; Z79.84 Long term (current) use of oral hypoglycemic drugs; Z79.890 Hormone replacement therapy; Z79.899 Other long term (current) drug therapy
CPT/HCPCS: 88305; 45385; J2704

== ENCOUNTER → 2024-12-19 | Outpatient (CLI) | payer MEDICARE ==
--- NOTE | 2024-12-19 15:27 | MM ---
Reason for Exam: Screening (asymptomatic). Last mammogram was performed 1 year(s) and 8 month(s) ago. Patient History: Menarche at age 12. First Full-Term at age 29. Hysterectomy at age 51. Postmenopausal. Estrogen, starting at age 53 for 2 years. Patient used Hormonal Contraceptives for 20 years. Maternal aunt had breast cancer. Risk Values: Dee 5 year model risk: 2.1%. NCI Lifetime model risk: 5.6%. Prior Study Comparison: 06/17/2020 Right Diagnostic Mammogram, [facility]. 04/27/2022 Bilateral MG 3D diag mammo w/cad CJ, [facility]. 04/28/2023 Bilateral MG 3D screening mammo w/cad, [facility]. Tissue Density: The breasts are heterogeneously dense, which may obscure small masses. Findings: Analyzed By CAD. Multiple bilateral areas of asymmetric density are unchanged. There is a nodular asymmetric density central right MLO view middle depth which appears more pronounced. This may represent superimposition shadow but further evaluation is recommended. Otherwise, there is no suspicious group of microcalcifications or new suspicious mass in either breast. Overall Assessment: Incomplete: need additional imaging evaluation, BI-RAD 0 Management: Special View Mammogram of the right breast. [facility] will attempt to contact patient to return for supplemental views and ultrasound if indicated. [facility], , 12/19/2024 3:23 PM. Electronically signed and approved by: Scott Scott M.D. Radiologist
== END | disposition home or self-care (01) ==
LOC: RADMAMWWP 14:46
PROVIDERS: ATTEND Family Medicine
DX: Z12.31 Encounter for screening mammogram for malignant neoplasm of breast (principal); R92.333 Mammographic heterogeneous density, bilateral breasts; Z78.0 Asymptomatic menopausal state; Z80.3 Family history of malignant neoplasm of breast; Z92.0 Personal history of contraception
CPT/HCPCS: 77063; 77067

== ENCOUNTER → 2024-12-24 | Outpatient (CLI) | payer MEDICARE ==
--- NOTE | 2024-12-24 11:48 | MM ---
Reason for Exam: Additional evaluation requested from abnormal screening. Last screening mammogram was performed less than 1 month ago. Patient History: Menarche at age 12. First Full-Term at age 29. Hysterectomy at age 51. Postmenopausal. Estrogen, starting at age 53 for 2 years. Patient used Hormonal Contraceptives for 20 years. Maternal aunt had breast cancer. Risk Values: Dee 5 year model risk: 2.1%. NCI Lifetime model risk: 5.6%. Prior Study Comparison: 06/17/2020 Right Diagnostic Mammogram, [facility]. 04/27/2022 Bilateral MG 3D diag mammo w/cad CJ, [facility]. 04/28/2023 Bilateral MG 3D screening mammo w/cad, [facility]. 12/19/2024 Bilateral MG 3D screening mammo w/cad, [facility]. Tissue Density: Right: The breasts are heterogeneously dense, which may obscure small masses. Findings: Analyzed By CAD. Area of concern/asymmetry compresses out on right breast MLO spot compression imaging. No suspicious masses, calcifications or distortions. Overall Assessment: Benign, BI-RAD 2 Management: Screening Mammogram of both breasts in 1 year. Results were given to the patient verbally at the time of exam. Patient should continue monthly self-breast exams. A clinical breast exam by your physician is recommended on an annual basis. This exam should not preclude additional follow-up of suspicious palpable abnormalities. Note on Dee scores and lifetime risk: 1. A Dee score greater than 3% is considered moderate risk. If this is the case, consider specialist referral to assess eligibility for a risk reducing agent. 2. If overall lifetime risk for the development of breast cancer is 20% or higher, the patient may qualify for future screening with alternating mammogram and breast MRI. [facility], , 12/24/2024 11:45 AM. Electronically signed and approved by: Chito Handy DO
== END | disposition home or self-care (01) ==
LOC: RADMAMWWP 11:21
PROVIDERS: ATTEND Family Medicine
DX: R92.8 Other abnormal and inconclusive findings on diagnostic imaging of breast (principal); R92.331 Mammographic heterogeneous density, right breast; Z78.0 Asymptomatic menopausal state; Z92.0 Personal history of contraception; Z80.3 Family history of malignant neoplasm of breast
CPT/HCPCS: 77061; 77065